=== PATIENT | male | born 1955 | race Caucasian/White ===

== ENCOUNTER 2018-04-14 17:44 | Emergency (ER) | payer OTHER ==
--- NOTE | 2018-04-14 19:05 | EDPHY ---
H & P Time Seen by Provider: 04/14/18 18:35 HPI/ROS: CHIEF COMPLAINT: Here for paracentesis and shunt placement HISTORY OF PRESENT ILLNESS: Patient is a 62-year-old male on hospice with a history of cirrhosis and recurrent ascites who is here for paracentesis and shunt placement. Patient states he was sent from hospice care at his nursing facility to have these interventions from Radiology. The patient has recurrent ascites. His last paracentesis was 3 days ago. He now has significant abdominal distention and discomfort. No shortness of breath. No fevers or chills. REVIEW OF SYSTEMS: My complete review of systems is negative except as mentioned in the HPI. Past Medical/Surgical History: Includes ascites, end-stage liver disease, hepatitis-B, DVT, degenerative disc disease Past surgical history: Includes cholecystectomy Social history: Patient is a longterm resident Smoking Status: Light smoker Physical Exam: Vitals noted GENERAL: No acute distress, alert. HEENT: Eyes normal to inspection, normal pharynx, no signs of dehydration. NECK: [No thyromegaly, no lymphadenopathy, supple. RESPIRATORY: Clear to auscultation bilaterally, no rales, rhonchi or wheezing. CVS: Regular rate and rhythm, no rubs, murmurs, or gallops. ABDOMEN: Soft, distended. Mild diffuse tenderness palpated. No tap tenderness. BACK: Normal to inspection, no CVA tenderness. SKIN: Normal color, no rash, warm, dry. No pallor. EXTREMITIES: No pedal edema, no calf tenderness, no Homans sign or cords, no joint swelling. NEURO/PSYCH: Alert and oriented, normal mood and affect, normal motor sensory exam. Constitutional: Initial Vital Signs Temperature (C) 36.9 C 04/14/18 18:21 Heart Rate 85 04/14/18 18:21 Respiratory Rate 22 H 04/14/18 18:21 Blood Pressure 116/62 04/14/18 18:21 O2 Sat (%) 94 04/14/18 18:21 O2 Delivery Mode Nasal Cannula O2 (L/minute) 2 Allergies/Adverse Reactions: acetaminophen [From Tylenol] Allergy (Verified 03/23/16 14:01) Other-Enter Comments ibuprofen Allergy (Verified 03/23/16 14:01) Home Medications: Medication Instructions Recorded Doxepin HCl 04/14/18 Guaifenesin 04/14/18 HYDROmorphone 04/14/18 Klor-Con 04/14/18 Lasix 04/14/18 Lovenox 04/14/18 Ms Contin 04/14/18 Pantoprazole Sodium 04/14/18 Sucralfate Malate, Polymerized 04/14/18 Medical Decision Making ED Course/Re-evaluation: In the emergency department the patient was agitated that we did not know his care plan. We have not received a call from his care providers. I called the patient's longterm to get further history. I spoke with Diane from the nursing facility. Per report, the patient had been scheduled to have an outpatient Bristol drain and paracentesis by Radiology. However, he did not make it to Radiology in time. He was subsequently sent to the emergency department. I discussed the case with Dr. Sue from Radiology. I also discussed case with the wind turbine technician. Laboratory studies including coags were ordered. I discussed the case with Dr. Ho came to the emergency department for evaluation. She will perform paracentesis. 2012: I rechecked the patient in the room. He is currently draining his ascites. He was tolerating the procedure well. No distress. Patient was given albumin per protocol. I discussed the plan with Dr. Ho. Patient will be discharged back to his nursing care facility. He will keep his appointment on Tuesday. He is given warnings prior to leaving. Differential Diagnosis: My differential includes but is not limited to hospice, end-stage liver disease , ascites, peritonitis, bacteremia, sepsis - Data Points Laboratory Results: Laboratory Results 04/14/18 19:23 04/14/18 19:23 04/14/18 04/14/18 04/14/18 19:23 19:23 19:23 WBC 5.83 10^3/uL 10^3/uL (3.80-9.50) RBC 3.56 10^6/uL L 10^6/uL (4.40-6.38) Hgb 11.0 g/dL L g/dL (13.7-17.5) Hct 33.7 % L % (40.0-51.0) MCV 94.7 fL fL (81.5-99.8) MCH 30.9 pg pg (27.9-34.1) MCHC 32.6 g/dL g/dL (32.4-36.7) RDW 15.8 % H % (11.5-15.2) Plt Count 261 10^3/uL 10^3/uL (150-400) MPV 9.6 fL fL (8.7-11.7) Neut % (Auto) 58.3 % % (39.3-74.2) Lymph % (Auto) 26.8 % % (15.0-45.0) Bradley % (Auto) 9.9 % % (4.5-13.0) Eos % (Auto) 3.8 % % (0.6-7.6) Baso % (Auto) 0.9 % % (0.3-1.7) Nucleat RBC Rel Count 0.0 % % (0.0-0.2) Absolute Neuts (auto) 3.40 10^3/uL 10^3/uL (1.70-6.50) Absolute Lymphs (auto) 1.56 10^3/uL 10^3/uL (1.00-3.00) Absolute Monos (auto) 0.58 10^3/uL 10^3/uL (0.30-0.80) Absolute Eos (auto) 0.22 10^3/uL 10^3/uL (0.03-0.40) Absolute Basos (auto) 0.05 10^3/uL 10^3/uL (0.02-0.10) Absolute Nucleated RBC 0.00 10^3/uL 10^3/uL (0-0.01) Immature Gran % 0.3 % % (0.0-1.1) Immature Gran # 0.02 10^3/uL 10^3/uL (0.00-0.10) PT 13.3 SEC SEC (12.0-15.0) INR 0.99 (0.83-1.16) APTT 35.2 SEC SEC (23.0-38.0) Sodium 135 mEq/L mEq/L (135-145) Potassium 4.4 mEq/L mEq/L (3.3-5.0) Chloride 99 mEq/L mEq/L (97-110) Carbon Dioxide 31 mEq/l mEq/l (22-31) Anion Gap 5 mEq/L L mEq/L (8-16) BUN 10 mg/dL mg/dL (7-23) Creatinine 0.8 mg/dL mg/dL (0.7-1.3) Estimated GFR > 60 Glucose 89 mg/dL mg/dL (70-100) Calcium 8.5 mg/dL mg/dL (8.5-10.4) Departure - Departure Disposition: Home, Routine, Self-Care Clinical Impression: Abdominal pain Qualifiers: Abdominal location: generalized Qualified Code(s): R10.84 - Generalized abdominal pain Ascites Qualifiers: Ascites type: other type Qualified Code(s): R18.8 - Other ascites Condition: Fair Instructions: Ascites (ED), Paracentesis (DC) Additional Instructions: Keep the appointment for Bristol drain placement on Tuesday. Return with increasing pain, fever, or any other concerns. Referrals: Hospice Provider,Family [Medical Doctor] - 2-3 days, if not improved
[2018-04-14] MEDS ORDERED: LIDOCAINE 1% 300 MG/30 ML SDV ONE (19:29)
[2018-04-14 19:32] LABS: PLATELET COUNT 261 10^3/uL (150-400)
[2018-04-14 19:40] LABS: INR 0.99 (0.83-1.16); PROTIME(PATIENT) 13.3 SEC (12.0-15.0)
[2018-04-14] MEDS ORDERED: ALBUMIN 25% 200 ML IV ONE (20:15)
[2018-04-14] MEDS ORDERED: HYDROmorphONE/DILAUDID 2 MG TAB PO ONE (21:46)
[2018-04-14] MEDS ORDERED: morphINE SR 30 MG TAB PO ONE (22:31)
[2018-04-14 23:56] VITALS: BP 123/70
== END 2018-04-14 23:54 | disposition home or self-care (01) ==
LOC: EDSTATUS 17:44
PROC: 0W9F30Z Drainage of Abdominal Wall with Drainage Device, Percutaneous Approach (ICD-10-PCS; principal; 2018-04-14)
DX: R18.8 Other ascites (principal); K74.60 Unspecified cirrhosis of liver; B19.10 Unspecified viral hepatitis B without hepatic coma; F17.200 Nicotine dependence, unspecified, uncomplicated
CPT/HCPCS: 49083; 96365; 96366; 99285; P9047